=== PATIENT | male | born 1975 | race Caucasian/White ===

== ENCOUNTER 2020-09-22 08:46 | Emergency (ER) | payer MEDICAID ==
[~2020-09-22] VITALS: Ht 175.3 cm; Wt 68.0 kg
[2020-09-22] MEDS ORDERED: KETOROLAC 30MG/ML VIAL IV STA (09:05)
[2020-09-22] MEDS ORDERED: SODIUM CHLORIDE 0.9% 1,000 ML IV ONE (09:15)
[2020-09-22 09:48] LABS: BASOPHILS % 0.5 % (0.0-2.0); HEMATOCRIT. 33.7 % (42.0-52.0); HEMOGLOBIN. 10.2 g/dL (14.0-18.0); LYMPHOCYTES % 26.8 % (20.0-50.0); MEAN CORPUSCULAR HEMOGLOBIN 18.8 pg (28.0-32.0); MEAN CORPUSCULAR VOLUME 62.1 fL (80.0-94.0); MEAN PLATELET VOLUME 8.3 fl (7.4-10.4); MONOCYTES % 9.8 % (2.0-8.0); NEUTROPHILS % 59.9 % (40.0-76.0); PLATELET 129 x1000/uL (130-400); RED BLOOD CELL COUNT 5.43 mill/uL (4.7-6.1); RED CELL DISTRIBUTION WIDTH 20.4 % (11.6-14.6)
[2020-09-22 09:50] LABS: CHLORIDE 106 mEq/L (98-107)
[2020-09-22] MEDS ORDERED: IOHEXOL-300 100 ML BOTTLE ONE (10:47)
[2020-09-22] MEDS ORDERED: IBUP-2028 MT (10:52)
[2020-09-22 11:10] LABS: PLATELET ESTIMATE NORMAL
[2020-09-22 11:15] VITALS: BP 117/72
== END 2020-09-22 11:15 | disposition home or self-care (01) ==
LOC: ER 08:46
DX: R10.30 Lower abdominal pain, unspecified (principal); D61.818 Other pancytopenia; R00.0 Tachycardia, unspecified; F15.10 Other stimulant abuse, uncomplicated; F17.200 Nicotine dependence, unspecified, uncomplicated; Z98.890 Other specified postprocedural states; Z79.899 Other long term (current) drug therapy; Z85.038 Personal history of other malignant neoplasm of large intestine; E86.0 Dehydration
CPT/HCPCS: 36415; 74177; 80053; 83690; 85025; 93005; 96361; 96374; 99285; J1885; J7030; Q9967; Z7610